=== PATIENT | female | born 1960 | race Caucasian/White ===

== ENCOUNTER 2017-05-15 06:37 | Day surgery (SDC) | payer MEDICARE, MEDICAID ==
--- NOTE | 2017-05-09 13:00 | HP ---
AMENDED REPORT NOW INCLUDES COSIGNER DESIGNATION - ESIGNED BEFORE ADJUSTMENT PREOPERATIVE HISTORY AND PHYSICAL: DATE OF ADMISSION/SURGERY: 05/15/17 DATE OF OFFICE VISIT/ENCOUNTER: 05/03/17 ATTENDING SURGEON: Angela Hurtado MD * (DICTATED BY AURA ZACARIAS) PROCEDURE: Right wrist arthrodesis. HISTORY OF PRESENT ILLNESS: This is a 56-year-old female, who has a history of right wrist fracture back in 2013. This was treated initially by an orthopedist in [place] conservatively and then with pinning; however, she lost the reduction. Eventually, she saw Dr. Choudhary in [place], who did an open reduction internal fixation with a plate. She subsequently had the plate removed. The patient's complaint is that her wrist is maintained in a flexed position. She cannot extend her wrist. She has movement in her fingers in flexion and extension. She has imaging studies, MRI, and CT scan which showed posttraumatic arthritis of the radiocarpal joint, but her basic complaint is that her wrist stays in a flexed position and she cannot actively extend it. She has failed treatment with physical therapy. She has at this point consented to proceed with a right wrist arthrodesis. PAST MEDICAL HISTORY: 1. COPD. 2. Epilepsy. 3. Arthritis. 4. Anemia. 5. Depression/anxiety. 6. Contact dermatitis. 7. Degenerative disk disease. PAST SURGICAL HISTORY: 1. Bilateral wrist surgery. 2. Tonsillectomy. CURRENT MEDICATIONS: 1. Betamethasone dipropionate 0.05%. 2. Buspirone HCl 10 mg 1 tab twice a day. 3. Calcium. 4. Clonazepam 0.5 mg p.r.n. sleep. 5. Diclofenac sodium 75 mg 1 tab twice daily. 6. Duloxetine HCl 30 mg daily. 7. Duloxetine HCl 60 mg daily. 8. Fluticasone propionate 2 sprays p.r.n. 9. Hydroxychloroquine sulfate 200 mg twice a day. 10. Klor-Con 10 10 mEq daily. 11. Levocetirizine dihydrochloride 5 mg daily. 12. Mirtazapine 15 mg daily. 13. Pantoprazole sodium 40 mg daily. 14. Phenobarbital 64.8 mg 3 tabs daily. 15. Prolia 60 mg q.6 months. 16. Spiriva HandiHaler. 17. Tylenol Extra Strength 500 mg 2 tabs daily. 18. Ventolin inhaler 2 puffs 4 times a day as needed. 19. Vitamin D 400 units daily. 20. Zolpidem tartrate 0.5 to 1 tab daily. ALLERGIES: LATEX. No known drug allergies. FAMILY MEDICAL HISTORY: Hypertension, stroke, and cancer. SOCIAL HISTORY: The patient is disabled and she is a former smoker. She quit approximately a half year ago. Prior to that, she smoked a pack and a half per day for 30 years. She denies recreational drug use and alcohol use. REVIEW OF SYSTEMS: General: Negative for fevers, chills, or night sweats. No known anesthesia problems. HEENT: Negative for headache, lightheadedness, or syncopal episodes. Integumentary: Negative for abrasions, lesions, or open wounds. Cardiothoracic: Negative for hypertension, chest pain, palpitations, or edema. Pulmonary: Positive for COPD. GI: Negative for nausea, vomiting, diarrhea, constipation, or GERD. : Negative for nocturia, urinary frequency , urgency, history of UTIs, or kidney problems. Musculoskeletal: Positive for current complaint, arthritis, and degenerative disk disease. Neurological: Positive for epilepsy. Negative for paresthesias or numbness. Endocrine: Negative for diabetes or thyroid issues. Hematologic: Negative for bleeding disorders, easy bruising, anemia, or excessive bleeding. Infectious Disease: Negative for history of MRSA, hepatitis C, or HIV. PHYSICAL EXAMINATION GENERAL: Well-developed, well-nourished, 56-year-old female in no acute distress. VITAL SIGNS: Height is 5 feet 7 inches, weight 187 pounds. Blood pressure 108/ 68, pulse rate 78. HEENT: Normocephalic, atraumatic. Pupils are equal, round, and reactive to light and accommodation. Extraocular movements are intact. Throat is clear. NECK: Supple. No palpable lymph nodes. PULMONARY: Lungs are clear to auscultation bilaterally. No wheezes, rales, or rhonchi. CARDIOVASCULAR: Regular rate and rhythm. S1 and S2. No murmurs, rubs, or gallops. No edema. ABDOMEN: Positive bowel sounds, soft, nontender. MUSCULOSKELETAL: On exam of the patient's right wrist, she has a flexion deformity at the radiocarpal joint with resultant hyperextension of her finger MP joints. She can make a full fist with her fingers. Passively, the flexion contracture can be corrected to almost the neutral position at the wrist joint. She has full extension of her fingers. All of her flexor tendons of her fingers are working. She has active flexion of her wrist to proximally 80 degrees, but she cannot actively extend her wrist at all. Skin is intact. Neurovascular function is intact. NEUROLOGICAL: Alert and oriented x3. Cranial nerves II through XII are intact. Sensation is intact to light touch. IMAGING STUDIES: MRI and CT scan of the right wrist show posttraumatic arthritis of the radiocarpal joint. 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 PLAN: The patient is scheduled to undergo a right wrist arthrodesis with Dr. Hurtado on 05/15/17. She will follow up in the office 10 to 14 days postop for followup and suture removal. A prescription for Percocet was e-scribed to the patient's pharmacy for postoperative pain management. AURA ZACARIAS [id number]/[facility] #: [id number] MTDAditya
[~2017-05-15 06:37] MED LIST: Buffered Lidocaine 0.9% SYRIN* 5 ML/SYR SYRINGE INTRADERM ONE; Famotidine IV* 10 MG/ML 2 ML (20 mg) IV ONE; Famotidine IV* 10 MG/ML 2 ML (20 mg) ONE; Morphine INJ* 2 MG/ML 1 ML CARPUJECT IV PRN; Ondansetron INJ* 2 MG/ML VIAL IV PRN; PROCHLORPERAZINE INJ 5 MG/ML 2 ML VIAL IV PRN; Scopolamine 1.5 mg* PATCH TRANSDERM PRN; ceFAZolin 2 GM PREMIX (*) 2 GM/50 ML BAG IVPB ONE; fentaNYL* 50 MCG/ML 2 ML VIAL (100 MCG VIAL) IV PRN; oxyCODONE/Acetamin 5/325 MG* TAB PO PRN
[2017-05-15] MEDS ORDERED: fentaNYL* 50 MCG/ML 2 ML VIAL (100 MCG VIAL) ONE (07:27)
[2017-05-15] MEDS ORDERED: KETAMINE HCL* 50 MG/ML 10 ML VIAL ONE (07:28)
[2017-05-15] MEDS ORDERED: Midazolam* 1 MG/ML 5 ML VIAL (5 MG) ONE (07:28)
[2017-05-15] MEDS ORDERED: Bupivacaine 0.5% SDV PF* 30 ML VIAL ONE (07:30)
[2017-05-15] MEDS ORDERED: Bupivacaine 0.5% W/EPI SDV* 30 ML VIAL ONE (07:31)
[2017-05-15] MEDS ORDERED: Propofol* 10 MG/ML 20 ML BTL IV PUSH ONE (08:01)
[2017-05-15] MEDS ORDERED: Ondansetron INJ* 2 MG/ML VIAL ONE (08:01)
[2017-05-15] MEDS ORDERED: Ketorolac INJ* 30 MG/ML 1 ML VIAL ONE (08:01)
[2017-05-15] MEDS ORDERED: Lidocaine 2% PF * 5 ML VIAL ONE (08:01)
[2017-05-15] MEDS ORDERED: Dexamethasone IV* 4 MG/ML 1 ML (4 MG) ONE (08:01)
[2017-05-15] MEDS ORDERED: Morphine INJ* 10 MG/ML 1 ML CARPUJECT ONE (08:41)
[2017-05-15] MEDS ORDERED: oxyCODONE/Acetamin 5/325 MG* TAB ONE (09:36)
[2017-05-15 10:37] VITALS: BP 122/61
[2017-05-15] MEDS ORDERED: Neomycin/Polymy/Dex OPHTH.OIN* 3.5 GM ONE (15:11)
[2017-05-15] MEDS ORDERED: Ketorolac 0.5% OPHTH (NF) 0.5 % 5 ML BTL ONE (15:11)
[2017-05-15] MEDS ORDERED: Tropicamide 1% OPTH.SOL* BTL ONE (15:11)
[2017-05-15] MEDS ORDERED: Tetracaine 0.5% OPTH.SOL 4 ML* 1 DROP BTL ONE (15:11)
[2017-05-15] MEDS ORDERED: Phenylephrine 2.5% OPTH.SOL* 2 ML BTL ONE (15:11)
[2017-05-15] MEDS ORDERED: Cyclopentolate 1% OPTH.SOL* 2 ML BTL ONE (15:11)
[2017-05-15] MEDS ORDERED: Lidocaine 1% MPF* 2 ML VIAL ONE (15:11)
--- NOTE | 2017-05-15 23:28 | OP ---
DATE OF OPERATION: 05/15/17 [facility] DATE OF : 64 SURGEON: Angela Hurtado MD MANAGER ETHICS: AURA Adrian ANESTHESIOLOGIST: Grabiel Ayala MD ANESTHESIA: General. PRE-OP DIAGNOSIS: Post-traumatic arthritis and contracture of the right wrist. POST-OP DIAGNOSIS: Post-traumatic arthritis and contracture of the right wrist. OPERATIVE PROCEDURE: Right wrist fusion. ESTIMATED BLOOD LOSS: Zero. TOURNIQUET TIME: About an hour and 15 minutes. INDICATIONS FOR PROCEDURE: Shari is a 56-year-old woman who suffered a distal radius fracture on the right. She had an ORIF. She had subsequent hardware removal. She has developed a flexion contracture of her right wrist and cannot use her hand because her wrist is flexed to about 40 degrees. 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 She has some post-traumatic changes on her x-ray and she presents for right wrist fusion to reposition her wrist in a more functional position. DESCRIPTION OF PROCEDURE: The patient was brought to the operating room and was given a general anesthetic and placed in the supine position on the operating table with a tourniquet around her right upper arm. Skin of her right upper extremity was prepped and draped in the usual sterile fashion. The hand and forearm were exsanguinated and the tourniquet elevated to 250 mmHg. The area of the incision was infiltrated with 10 cc of Marcaine 0.5% plain. A longitudinal incision was made just ulnar to Juan J's tubercle. We dissected sharply down to the extensor retinaculum. The retinaculum was opened in the third compartment and all the tendons were retracted by the surgical aides teacher, Naz Solis. The posterior interosseous nerve was located and removed. The wrist joint capsule was then incised longitudinally and subperiosteally dissected off the distal radius. The articular surface of the radius and lunate and capitate were denuded of cartilage and was a scaphoid nonunion and the proximal pole of the scaphoid was removed. We had good bleeding cancellous bone and good apposition of the lunate against the radius. I then secured a wrist fusion plate from the [employer] set with 4 proximal and 4 distal screws. The position of the hardware and fusion fragments were checked on the C-arm in the AP and lateral views and found to be in very good position. Bone rasp was used to fill the gap where the scaphoid was removed. The wound was copiously irrigated with saline prior to placement of the bone graft. Extensor retinaculum was repaired with 2-0 Vicryl suture and then the skin edges were reapproximated with 4-0 nylon suture. The wound was dressed with Xeroform, 4x4 , Webril, and a volar splint. The patient tolerated the procedure well and was brought to the recovery room in good condition. [id number]/[facility] #: [id number] MTDAditya
--- NOTE | 2017-05-17 07:13 | RAD ---
INDICATION: Right wrist fusion. COMPARISON: There are no prior studies available for comparison. TECHNIQUE: 48 seconds of intermittent fluoroscopic guidance were provided and 2 spot films of the right wrist were obtained in the operating room. FINDINGS: The films demonstrate post including a metallic plate present along the dorsal aspect of the distal radius and proximal third metacarpal transfixed with multiple screws. IMPRESSION: INTRAOPERATIVE CONTROL FILMS. CPT II Codes: 6045F
[2017-05-18] MEDS ORDERED: Scopolomine PATCH Remove* 1 NOTE MISC PATCH OFF ONE (05:53)
== END 2017-05-15 10:29 | disposition home or self-care (01) ==
LOC: OREAST 06:37
PROVIDERS: ATTEND Orthopaedic Surgery
DX: M24.531 Contracture, right wrist (principal); M19.131 Post-traumatic osteoarthritis, right wrist; S52.501S Unspecified fracture of the lower end of right radius, sequela; X58.XXXS Exposure to other specified factors, sequela; J44.9 Chronic obstructive pulmonary disease, unspecified; F32.9 Major depressive disorder, single episode, unspecified; F41.9 Anxiety disorder, unspecified; L25.9 Unspecified contact dermatitis, unspecified cause; G40.909 Epilepsy, unspecified, not intractable, without status epilepticus; Z87.891 Personal history of nicotine dependence
CPT/HCPCS: 76000; 87070; 87073; 87205; 88304; 88311; A9270-GY; C1713; C1776; J0690; J1100; J1885; J2250; J2270; J2405; J2704; J3010